=== PATIENT | male | born 1945 | race Caucasian/White ===

== ENCOUNTER 2020-05-11 01:28 | Outpatient (CLI) | payer MEDICARE, SELFPAY ==
[2020-05-11 19:05] LABS: SARS-CoV-2 RNA PCR Negative
== END 2020-05-11 01:29 | disposition home or self-care (01) ==
LOC: ANHCOVIDDT 01:28
PROVIDERS: PCP Family Medicine; Visit Provider Internal Medicine Gastroenterology
DX: Z01.812 Encounter for preprocedural laboratory examination (principal); Z20.828 Contact with and (suspected) exposure to other viral communicable diseases
CPT/HCPCS: 87635; C9803; U0003

== ENCOUNTER 2020-05-13 01:08 | Day surgery (SDC) | payer MEDICARE, SELFPAY ==
[2020-05-07 09:28] VITALS: BMI 25.9
--- NOTE | 2020-05-12 08:54 | WPDANESEPPF ---
Anes - Initial Pre Proc Eval Procedure: Operation Date: 05/13/20 09:30 Proposed Procedures p Colonoscopy - Sam Pedro MD Date/Time: 05/12/20 08:54 Surgeon: Sam Pedro MD Pre Op Diagnosis: Diverticulosis,Hx of Colon Polyps Patient Data Age: 74 Gender: M Height: 1.78 m Weight: 82 kg Allergies Allergy/AdvReac Type Severity Reaction Status Date / Time methylprednisolone Allergy Unknown nausea Verified 05/13/20 08:58 Home Medications Medication Instructions Recorded Confirmed Type aspirin 81 mg tablet,delayed 81 mg PO DAILY 05/30/19 05/13/20 History release cyanocobalamin (vitamin B-12) 2,500 mcg PO DAILY 05/30/19 05/13/20 History 2,500 mcg sublingual tablet magnesium 250 mg tablet 250 mg PO DAILY 05/30/19 05/13/20 History multivitamin 1 tablet PO DAILY 05/30/19 05/13/20 History potassium 99 mg tablet 99 mg PO DAILY tablet 05/30/19 05/13/20 History amlodipine 2.5 mg tablet 2.5 mg PO DAILY #90 tablet 09/23/19 05/13/20 Rx acetaminophen 650 mg 1,300 mg PO BID tablet 01/21/20 05/13/20 History tablet,extended release arginine (L-arginine) 1,000 mg PO DAILY 05/07/20 05/13/20 History clopidogrel 75 mg PO DAILY 05/07/20 05/13/20 History omega-3 fatty acids [[place] 3 Fish 2,000 mg PO DAILY 05/07/20 05/13/20 History Oil] Patient hx anesthesia problems: none Family hx anesthesia problems: none PMFSH Past Medical History Medical History (Updated 05/13/20 @ 09:20 by Sam Pedro MD) AAA (abdominal aortic aneurysm) BPH loc w/o ur obs/LUTS Cervical spinal stenosis Dyslipidemia Essential (primary) hypertension Fracture of left wrist 1959 Fracture of right patella 1968 History of bladder cancer History of CVA (cerebrovascular accident) History of prostate disorder Hx of heat stroke 2014 Open fracture of right lower leg 1988 Peripheral neuropathy Surgical History Surgical History History of appendectomy 195 History of back surgery 08/23/18 History of colectomy 2012 History of lumbosacral spine surgery History of partial colectomy S/P TURP Family History Family History Sibling Lung disease Father Heart disease Mother Heart disease Mother Diabetes mellitus, Onset Age: 87 Hypertension Family history of cardiovascular disease, Onset Age: 87 Family history of coronary artery disease Acute myocardial infarction, Onset Age: 87 Father Family history of cardiovascular disease Family history of coronary artery disease Acute myocardial infarction, Onset Age: 67 Sibling Diabetes mellitus, Onset Age: 63 Family history of renal failure, Onset Age: 63 Family history of elevated blood lipids Family history of cardiovascular disease Family history of coronary artery disease Father Family history of cardiovascular disease Mother Family history of cardiovascular disease Sibling Family history of lung disease Other Asthma Carcinoma of colon Cerebrovascular accident Social History Social History Smoking packs per day: 1.5 Smoking cigarettes per day: 30.0 Years smoked: 60 Smoking pack-years: 90.00 Smoking status: Current every day smoker Tobacco type: cigarettes Second hand tobacco smoke exposure: Yes Alcohol intake: current Substance use: never Substance use type: does not use Living arrangements: with family Spiritual care concerns: No Anes - Eval Final PreProcedure Day of Procedure 05/12/20 08:54 Patient weight: overweight Heart: regular rate and rhythm Lungs: clear to auscultation and normal air movement Airway: Mallampati scale class II Neurological: alert and oriented Last oral intake: >/= 8 hours ASA classification: IV Emergent: no Anesthetic plan: proceed Anesthesia type and monitoring: general GIVS and standard monitoring
[2020-05-13 08:59] VITALS: BP 140/80; PULSE 70; RESP 16; TEMP 36.3; O2SAT 98
[2020-05-13] MEDS: LACTATED RINGERS 1,000 ML 150 ML IV CONT (09:15)
--- NOTE | 2020-05-13 09:16 | WPDGICN ---
Assessment and Plan Assessment and plan (1) LLQ abdominal pain: Code(s): R10.32 - Left lower quadrant pain Status: Acute (2) History of partial colectomy: Code(s): Z90.49 - Acquired absence of other specified parts of digestive tract Status: Acute (3) History of colon polyps: Code(s): Z86.010 - Personal history of colonic polyps Status: Acute Assessment and Plan: Patient has a history of colon polyp in 2019. Underwent resection for a large colon polyp in 2010. Because of ongoing left lower quadrant pain left-sided pain in flank pain a colonoscopy will be performed. It is uncertain if this pain is related to the GI tract however. (4) History of CVA (cerebrovascular accident): Code(s): Z86.73 - Personal history of transient ischemic attack (TIA), and cerebral infarction without residual deficits Status: Acute GI Consult Note Consult date/time: 05/13/20 09:16 HPI: Jamie Argueta is a 74 year old male seen in evaluation at the request of Dr Burr. Patient complains of right abdominal pain. For this reason colonoscopy will be performed. Patient recently had diagnosis of BPH. He is status post TURP. Bladder cancer was diagnosed in May 2019. He did have some postprocedure bleeding. He now complains of left-sided abdominal pain. Patient describes pain in the left side it is sharp occurs briefly. Not related to diet or bowel movements. Past medical history is significant for TIA x5. He has a history of a pinched nerve. He has a colon polyp in February of 2019 by previous colonoscopy. In 2010 had a colon resection for very large colon polyp. Review of Systems Review of Systems: All systems reviewed & are unremarkable except as noted in HPI and below [facility] Past Medical History Medical History (Updated 05/13/20 @ 09:20 by Sam Pedro MD) AAA (abdominal aortic aneurysm) BPH loc w/o ur obs/LUTS Cervical spinal stenosis Dyslipidemia Essential (primary) hypertension Fracture of left wrist 1959 Fracture of right patella 1968 History of bladder cancer History of CVA (cerebrovascular accident) History of prostate disorder Hx of heat stroke 2014 Open fracture of right lower leg 1988 Peripheral neuropathy Surgical History Surgical History History of appendectomy 195 History of back surgery 08/23/18 History of colectomy 2012 History of lumbosacral spine surgery History of partial colectomy S/P TURP Family History Family History Sibling Lung disease Father Heart disease Mother Heart disease Mother Diabetes mellitus, Onset Age: 87 Hypertension Family history of cardiovascular disease, Onset Age: 87 Family history of coronary artery disease Acute myocardial infarction, Onset Age: 87 Father Family history of cardiovascular disease Family history of coronary artery disease Acute myocardial infarction, Onset Age: 67 Sibling Diabetes mellitus, Onset Age: 63 Family history of renal failure, Onset Age: 63 Family history of elevated blood lipids Family history of cardiovascular disease Family history of coronary artery disease Father Family history of cardiovascular disease Mother Family history of cardiovascular disease Sibling Family history of lung disease Other Asthma Carcinoma of colon Cerebrovascular accident Social History Social History Smoking packs per day: 1.5 Smoking cigarettes per day: 30.0 Years smoked: 60 Smoking pack-years: 90.00 Smoking status: Current every day smoker Tobacco type: cigarettes Second hand tobacco smoke exposure: Yes Alcohol intake: current Substance use: never Substance use type: does not use Living arrangements: with family Spiritual care concerns: No Meds Home
[2020-05-13 10:20] VITALS: BP 135/74; PULSE 64; RESP 18; O2SAT 100
[2020-05-13 10:30] VITALS: BP 139/76; PULSE 62; RESP 14; O2SAT 99
[2020-05-13 10:40] VITALS: BP 142/82; PULSE 73; RESP 25; O2SAT 100
== END 2020-05-13 10:55 | disposition home or self-care (01) ==
PROVIDERS: PCP Family Medicine; Visit Provider Internal Medicine Gastroenterology
PROC: 0DJD8ZZ Inspection of Lower Intestinal Tract, Via Natural or Artificial Opening Endoscopic (ICD-10-PCS; CPT 45378; principal; 2020-05-13 09:30)
DX: R10.32 Left lower quadrant pain (principal); D12.3 Benign neoplasm of transverse colon; K64.8 Other hemorrhoids; Z90.49 Acquired absence of other specified parts of digestive tract; I10 Essential (primary) hypertension; E78.5 Hyperlipidemia, unspecified; I71.4 Abdominal aortic aneurysm, without rupture; G62.9 Polyneuropathy, unspecified; N40.0 Benign prostatic hyperplasia without lower urinary tract symptoms; Z86.73 Personal history of transient ischemic attack (TIA), and cerebral infarction without residual deficits; F17.210 Nicotine dependence, cigarettes, uncomplicated; Z79.82 Long term (current) use of aspirin; Z79.02 Long term (current) use of antithrombotics/antiplatelets
CPT/HCPCS: 45385; 88305; J7120

== ENCOUNTER 2020-12-31 09:22 | Outpatient (CLI) | payer MEDICARE, SELFPAY ==
--- NOTE | ~2020-12-31 | MR_ITS ---
EXAMINATION: MR lumbar spine wo [facility] EXAM DATE: 12/31/2020 10:43 INDICATION: M54.5 - Low back pain. TECHNIQUE: Multi-sequential, multiplanar MR images of the lumbar spine were obtained without contrast . Sagittal T1, T2, T2 fat saturation images. Axial T2 weighted images. Comparison is made to prior examination from 07/10/2019. FINDINGS: There is edema at the left side of the L5-S1 endplates, could be minimal acute or subacute compression fractures. There is mild loss of all thoracolumbar vertebral body heights. Moderate to se angie disc disease L4-5 and L5-S1. The conus medullaris terminates at the T12-L1 level and has normal signal intensity and morphology. There is 2 mm retrolisthesis L4 on L5. Mildly dilated lower abdomina l aorta to 3 cm. Several sizable hemangiomas. Level by level evaluation: T12-L1: Disc does not extend beyond the endplate margin. Facet arthropathy: Mild. Neural foraminal stenosis: No stenosis. Central canal stenosis: No stenosis. L1-L2: Disc does not extend beyond the endplate margin. Facet arthropathy: Mild. Neural foraminal stenosis: No stenosis. Central canal stenosis: No stenosis. L2-L3: There is a mild diffuse disc bulge. Facet arthropathy: Mild to moderate. Neural foraminal stenosis: No stenosis. Central canal stenosis: No stenosis. L3-L4: There is a mild to moderate diffuse disc bulge. Facet arthropathy: Moderate to severe. Neural foraminal stenosis: Mild to moderate bilateral, right greater than left. Central canal stenosis: Mild to moderate. Evidence of prior left hemilaminotomy.. L4-L5: There is a moderate to large diffuse disc bulge. Facet arthropathy: Moderate. Neural foraminal stenosis: Moderate to severe left, moderate right. Central canal stenosis: Moderate to severe, prior left hemilaminotomy. L5-S1: There is a mild to moderate diffuse disc bulge. Facet arthropathy: Mild to moderate. Neural foraminal stenosis: Moderate left, mild to moderate right. Central canal stenosis: Mild, possible left hemilaminotomy. Edema within the L4 and L5 vertebral bodies has increased compared to prior study, as well as the lef t neural foraminal and central canal stenosis. IMPRESSION: 1. Mild diffuse loss lumbar vertebral body height with edema and L4 and L5 probably acute or subacut e on chronic minimal compressions. 2. L4-5 grade 1 retrolisthesis, moderate to severe disc disease, central canal and left neural bradley inal stenosis. Reviewed, dictated and finalized at location B. IMPRESSION: 1. Mild diffuse loss lumbar vertebral body height with edema and L4 and L5 pro bably acute or subacute on chronic minimal compressions. 2. L4-5 grade 1 retrolisthesis, moderate to severe disc disease, central canal and left neural foraminal stenosis.
== END 2020-12-31 09:23 | disposition home or self-care (01) ==
LOC: ANHIMG 09:37
PROVIDERS: PCP Family Medicine; Visit Provider Nurse Practitioner Family
DX: M54.5 Low back pain (principal); Z98.890 Other specified postprocedural states; R29.890 Loss of height; M79.89 Other specified soft tissue disorders; M43.16 Spondylolisthesis, lumbar region; M51.86 Other intervertebral disc disorders, lumbar region; M48.061 Spinal stenosis, lumbar region without neurogenic claudication
CPT/HCPCS: 72148

== ENCOUNTER 2021-02-12 14:59 | Emergency (ER) | payer MEDICARE, SELFPAY ==
[2021-02-12] VITALS (28 sets, daily range): BP systolic 104–179; BP diastolic 50–91; PULSE 63–97; RESP 15–28; TEMP 36.2; O2SAT 96–100
--- NOTE | ~2021-02-12 | XR_ITS ---
EXAMINATION: XR chest 1V INDICATION: History of COPD and bladder cancer TECHNIQUE: AP view of the chest is obtained. COMPARISON: 06/02/2011 FINDINGS: The lungs are free of acute opacities. There is no pleural effusion or pneumothorax. A calc ified nodule of the left midlung zone is consistent with old granulomatous disease. The cardiomediast inal silhouette is normal. IMPRESSION: 1. No acute cardiopulmonary abnormality. Reviewed, dictated and finalized at location A.
--- NOTE | ~2021-02-12 | CT_ITS ---
EXAMINATION: CT brain wo con INDICATION: Right-sided headache COMPARISON: 08/25/2014 TECHNIQUE: Standard unenhanced head CT. The dose-length product (DLP) was 605.33 mGy-cm. The mA was a djusted according to patient size. Iterative reconstruction technique was employed. FINDINGS: There is no acute intraparenchymal hemorrhage. No evidence of mass lesion. No evidence of a cute infarction. There is mild periventricular and subcortical hypodensity probably related to small vessel ischemic disease. There is mild prominence of the sulci and ventricles related to cerebral atr ophy. Intracranial calcified cerebral atherosclerosis is noted. There are no extra-axial collections. There is no mass effect or midline shift. Changes in the globes are likely from ocular lens surgery. The visualized sinuses and mastoid air cells are well aerated. IMPRESSION: 1. No acute intracranial abnormality. 2. Age related findings. Reviewed, dictated and finalized at location A.
--- NOTE | ~2021-02-12 | CT_ITS ---
EXAMINATION: CTA brain carotid DATE: 02/12/2021 17:02 INDICATION: Neck pain and transient ischemic attack TECHNIQUE: Computed tomographic angiography (CTA) of the head was performed with 100 mL Omnipaque-350 intravenous contrast. CTA of the neck was performed with intravenous contrast. The dose-length produ ct was 1181.82 mGy-cm. Maximum intensity projection and volume rendered 3D-reconstructions were creat ed by the technologist on a separate workstation. Automated exposure control and iterative reconstruc tion technique were employed. COMPARISON: None. FINDINGS: HEAD CTA: There is no acute intraparenchymal hemorrhage. No evidence of mass lesion. No evidence of a cute infarction. There is mild periventricular and subcortical hypodensity probably related to small vessel ischemic disease. There is mild prominence of the sulci and ventricles related to cerebral atr ophy. Intracranial calcified cerebral atherosclerosis is noted. There are no extra-axial collections. There is no mass effect or midline shift. The orbits and soft tissues are unremarkable. The visualiz ed sinuses and mastoid air cells are well aerated. There is no significant stenosis of the basilar artery or posterior cerebral arteries. There is no si gnificant stenosis of the intracranial internal carotid arteries or the anterior or middle cerebral a rteries. The anterior communicating artery and posterior communicating arteries are normal. There is no aneurysm. NECK CTA: The thyroid gland is unremarkable. The submandibular and parotid glands are symmetric. Ther e is no lymphadenopathy. There are no masses identified. There is mild to moderate thoracic spondylos is. Severe emphysema is noted in the lung apices. The superior mediastinum is unremarkable. There is 0% stenosis of the proximal right internal carotid artery relative to normal distal artery l umen diameter (NASCET criteria). There is 36% stenosis of the proximal left internal carotid artery r elative to normal distal artery lumen diameter. IMPRESSION: 1. No acute intracranial abnormality. Normal head CTA. 2. 0% stenosis of the proximal right internal carotid artery relative to normal distal artery lumen d iameter (NASCET criteria). 3. 36% stenosis of the proximal left internal carotid artery relative to normal distal artery lumen d iameter. Reviewed, dictated and finalized at location A. IMPRESSION: 1. No acute intracranial abnormality. Normal head CTA. 2. 0% stenosis of the proximal right internal carotid artery relative to normal distal artery lumen diameter (NASCET criteria). 3. 36% stenosis of the proximal left internal carotid artery relative to normal distal artery lumen diameter.
--- NOTE | 2021-02-12 15:03 | ECG_ITS ---
Measurements Intervals [place] Rate: 68 P: 60 GA: 175 QRS: -24 QRSD: 97 T: 55 QT: 380 QTc: 405 Interpretive Statements SINUS RHYTHM BORDERLINE R WAVE PROGRESSION, ANTERIOR LEADS BASELINE WANDER- II, III, AVF, V2-V3 BORDERLINE ECG Electronically Signed On 02-12-2021 15:35:00 CDT by Gerber Graham D.O.
[2021-02-12 15:18] LABS: Basophils Absolute Auto 0.1 K/mm3 (0.0-0.1); Basophils Percent Auto 0.5 % (0.2-1.2); Eosinophils Absolute Auto 0.1 K/mm3 (0-0.3); Eosinophils Percent Auto 0.9 % (0-4.4); Hemoglobin 15.5 g/dL (14.0-18.0); Immature Granulocyte Absolute 0.03 K/mm3 (0.00-0.031); Immature Granulocyte Percent A 0.3 % (0-0.5); Lymphocytes Absolute Auto 1.07 K/mm3 (0.9-3.2); Lymphocytes Percent Auto 10.8 % (18.3-44.2); Mean Corpuscular Hemoglobin 32.2 pg (26-34); Mean Corpuscular Volume 97.5 fl (80-100); Mean Platelet Volume 8.9 fl (7.4-10.4); Monocytes Absolute Auto 0.7 K/mm3 (0.1-0.6); Monocytes Percent Auto 6.7 % (2.6-8.5); Neutrophils Percent Auto 80.8 % (45.5-73.1); Platelet Count Result 221 k/mm3 (150-375); Red Blood Count 4.82 M/mm3 (4.6-6.20); Red Cell Distribution Width 13.1 % (11.5-14.5); White Blood Count 9.9 K/mm3 (4.5-10.0)
[2021-02-12 15:45] LABS: INR 0.9; Partial Thromboplastin Time 27.9 SECONDS (22.3-36.8); Prothrombin Time 12.2 Seconds (11.1-14.7)
[2021-02-12 15:55] LABS: Anion Gap 9 mmol/L (8-16); Blood Urea Nitrogen 23 mg/dL (9-20); Calcium 9.4 mg/dL (8.4-10.2); Carbon Dioxide 28 mmol/L (22-30); Chloride 104 mmol/L (98-107); Estimated CRCL calculation 38 ml/min; Estimated Glomerular Filt Rate 46; Glucose 90 mg/dL (65-110); Potassium 4.3 mmol/L (3.4-5.0); Sodium 141 mmol/L (137-145)
[2021-02-12 16:06] LABS: Troponin I < 0.012 ng/mL (0.000-0.034)
[2021-02-12] MEDS: SODIUM CHLORIDE 0.9% IV 500 ML 999 ML IV CONT (18:36)
[2021-02-12 18:53] LABS: Troponin I < 0.012 ng/mL (0.000-0.034)
[2021-02-12] MEDS: HYDROcodone/acetaminophen (*CRX) 7.5-325 MG TABLET 1 TAB PO (19:27)
--- NOTE | 2021-02-12 19:27 | ED.NEUROSD ---
HPI - Neuro Symptoms/Deficit General Chief Complaint: Suspected CVA Stated Complaint: r/o TIA Time Seen by Provider: 02/12/21 16:20 Source: patient and RN notes reviewed Mode of arrival: ambulatory Limitations: no limitations History of Present Illness HPI Narrative: Patient is a 75-year-old male who presents to emergency department for evaluation of posterior neck pain on the right side that radiates 7 to the had woke with this pain. Patient notes history of TIAs and chronic neck pain. Patient notes he felt fine yesterday. Patient is followed by neurology at [facility] who he saw in the last week. Patient is currently on Plavix and aspirin. Patient denies any other focal neurologic deficits or complaints and presents with son in no distress Related Data Home Medications Medication Instructions Recorded Confirmed aspirin 81 mg tablet,delayed 81 mg PO DAILY 05/30/19 12/02/20 release cyanocobalamin (vitamin B-12) 2,500 mcg PO DAILY 05/30/19 12/02/20 2,500 mcg sublingual tablet magnesium 250 mg tablet 250 mg PO DAILY 05/30/19 12/02/20 multivitamin 1 tablet PO DAILY 05/30/19 12/02/20 potassium 99 mg tablet 99 mg PO DAILY tablet 05/30/19 12/02/20 acetaminophen 650 mg 1,300 mg PO BID tablet 01/21/20 12/02/20 tablet,extended release arginine (L-arginine) 1,000 mg PO DAILY 05/07/20 12/02/20 omega-3 fatty acids [[place] 3 Fish 2,000 mg PO DAILY 05/07/20 12/02/20 Oil] amlodipine 2.5 mg tablet 2.5 mg PO DAILY tablet 12/02/20 12/02/20 Allergies Allergy/AdvReac Type Severity Reaction Status Date / Time No Known Allergies Allergy Verified 12/02/20 09:17 Review of Systems Review of Systems: All systems reviewed & are unremarkable except as noted in HPI and below PMFSH Past Medical History Medical History AAA (abdominal aortic aneurysm) BPH loc w/o ur obs/LUTS Cervical spinal stenosis COPD (chronic obstructive pulmonary disease) Dyslipidemia Essential (primary) hypertension Fracture of left wrist 1959 Fracture of right patella 1968 History of bladder cancer History of CVA (cerebrovascular accident) History of prostate disorder Hx of heat stroke 2014 Low back pain Open fracture of right lower leg 1988 Peripheral neuropathy Pulmonary nodules Surgical History Surgical History History of appendectomy 195 History of back surgery 08/23/18 History of colectomy 2012 History of lumbosacral spine surgery History of partial colectomy S/P TURP Family History Family History Sibling Lung disease Father Heart disease Mother Heart disease Mother Diabetes mellitus, Onset Age: 87 Hypertension Family history of cardiovascular disease, Onset Age: 87 Family history of coronary artery disease Acute myocardial infarction, Onset Age: 87 Father Family history of cardiovascular disease Family history of coronary artery disease Acute myocardial infarction, Onset Age: 67 Sibling Diabetes mellitus, Onset Age: 63 Family history of renal failure, Onset Age: 63 Family history of elevated blood lipids Family history of cardiovascular disease Family history of coronary artery disease Father Family history of cardiovascular disease Mother Family history of cardiovascular disease Sibling Family history of lung disease Other Asthma Carcinoma of colon Cerebrovascular accident Social History Social History Smoking packs per day: 1.5 Smoking cigarettes per day: 30.0 Years smoked: 60 Smoking pack-years: 90.00 Smoking status: Current every day smoker Tobacco type: cigarettes Second hand tobacco smoke exposure: Yes Alcohol intake: current Alcohol use details: drinks 1 beer a week Substance use: never Substance use
--- NOTE | 2021-02-12 19:59 | PC.NURSE ---
On the RN's arrival, pt c/o pain in neck that is constant. reported he has requested pain meds multiple times since arrival. JOE Argueta in room with pt. NETTIE Field ordered and given. pt d/c with all questions answered. a/o x 4. speech clear. ambulatory c steady, even, unassisted gait. no neuro abnormalities on d/c.
== END 2021-02-12 20:02 | disposition home or self-care (01) ==
PROVIDERS: Emergency Medicine; Emergency Medicine Emergency Medical Services; Emergency Provider Emergency Medicine; PCP Family Medicine
DX: M54.2 Cervicalgia (principal); N40.0 Benign prostatic hyperplasia without lower urinary tract symptoms; J44.9 Chronic obstructive pulmonary disease, unspecified; E78.5 Hyperlipidemia, unspecified; I10 Essential (primary) hypertension; Z85.51 Personal history of malignant neoplasm of bladder; Z86.73 Personal history of transient ischemic attack (TIA), and cerebral infarction without residual deficits; G62.9 Polyneuropathy, unspecified; Z79.02 Long term (current) use of antithrombotics/antiplatelets; Z79.82 Long term (current) use of aspirin; N42.9 Disorder of prostate, unspecified; Z90.49 Acquired absence of other specified parts of digestive tract; Z90.79 Acquired absence of other genital organ(s); F17.210 Nicotine dependence, cigarettes, uncomplicated; R94.31 Abnormal electrocardiogram [ECG] [EKG]; I65.22 Occlusion and stenosis of left carotid artery
CPT/HCPCS: 36415; 70450; 70496; 70498; 71045; 80048; 84484; 85025; 85610; 85730; 93005; 96360; 99284; A9270; J7040; Q9967

== ENCOUNTER 2021-09-14 12:20 | Observation (INO) | payer MEDICARE, SELFPAY ==
--- NOTE | ~2021-09-14 | XR_ITS ---
EXAMINATION: XR chest 2V DATE: 09/14/2021 14:26 INDICATION: Weakness. Dizziness. TECHNIQUE: Frontal and lateral views of the chest were obtained. COMPARISON: Chest single view 02/12/2021 FINDINGS: There are lucencies in the upper lungs, consistent with emphysema. Bilateral calcified pulm onary nodules are consistent with old granulomatous disease. There is mild atelectasis versus scarrin g at the lung bases. No pleural effusion or pneumothorax. The heart size is normal. IMPRESSION: 1. Emphysema. 2. Mild atelectasis versus scarring at the lung bases. Reviewed, dictated and finalized at location A. TENDER
--- NOTE | ~2021-09-14 | CT_ITS ---
EXAMINATION: CTA brain carotid DATE: 09/14/2021 14:24 INDICATION: Dizziness. TECHNIQUE: Computed tomographic angiography (CTA) of the head was performed with 100 mL Omnipaque-350 intravenous contrast. CTA of the neck was performed with intravenous contrast. Automated exposure co ntrol and iterative reconstruction technique were employed. The dose-length product was 1210.14 mGy-c m. Maximum intensity projection and volume rendered 3D-reconstructions were created by the [employer]i st on a separate workstation. COMPARISON: Head CT 09/14/2021 FINDINGS: HEAD CTA: There is no intracranial hemorrhage, acute infarction, or abnormal intracranial mass lesion . The ventricles are normal in size. There are likely changes of ocular lens replacement surgeries. T here is mild mucosal thickening in the paranasal sinuses. The mastoid air cells are normal. Left vert ebral artery is dominant. There is no significant stenosis of basilar artery or the posterior cerebra l arteries. There is no significant stenosis of the intracranial internal carotid arteries or anterio r or middle cerebral arteries. Anterior communicating artery is normal. Posterior communicating arter ies are not identified. There is no aneurysm. NECK CTA: There is mild emphysema. There is mild scarring at the lung apices. There are no pathologic ally enlarged lymph nodes. There is no significant stenosis of the vertebral arteries. There is plaqu e in the proximal internal carotid arteries. There is 18% stenosis of the proximal right internal car otid artery relative to normal distal artery lumen diameter (NASCET criteria). There is 22% stenosis of the proximal left internal carotid artery relative to normal distal artery lumen diameter. There i s moderate cervical spondylosis. IMPRESSION: 1. Normal brain. No aneurysm or significant intracranial internal stenosis. 2. 18% stenosis of the proximal right internal carotid artery relative to normal distal artery lumen diameter (NASCET criteria). 3. 22% stenosis of the proximal left internal carotid artery relative to normal distal artery lumen d iameter. Reviewed, dictated and finalized at location A. ISTICAL MACHINE SERVICER IMPRESSION: 1. Normal brain. No aneurysm or significant intracranial internal stenosis. 2. 18% stenosis of the proximal right internal carotid artery relative to jo l distal artery lumen diameter (NASCET criteria). 3. 22% stenosis of the proximal left internal carotid artery relative to normal distal artery lumen diameter.
--- NOTE | ~2021-09-14 | CT_ITS ---
EXAMINATION: CT brain wo con EXAM DATE: 09/14/2021 13:15 INDICATION: Weakness,dizzy. TECHNIQUE: Spiral CT of the head was performed without contrast. Axial, coronal and sagittal images were reviewed. The dose-length product (DLP) for this examination was 681.00 mGy-cm. The exposure w as tailored according to patient size, and iterative reconstruction (ASIR) was used as additional dos e reduction technique. Comparison is made to prior examination from 02/12/2021. FINDINGS: There is no acute intraparenchymal hemorrhage. No evidence of intraparenchymal brain mass lesion. No evidence of acute infarction. There is no mass effect or midline shift. The ventricles are normal in size. There are no extra-axial collections. There are no acute calvarial fractures. P danitza has had bilateral ocular lens surgery. Soft tissue is unremarkable. The visualized sinuses a nd mastoid air cells are well aerated. IMPRESSION: No acute intracranial findings. Reviewed, dictated and finalized at location B. ATION / CHEMISTRY TECHNICIAN
[2021-09-14 12:21] VITALS: BP 127/56; PULSE 54; RESP 16; TEMP 36.4; O2SAT 97
--- NOTE | 2021-09-14 12:35 | ED.DIZZY ---
HPI - Dizziness General Chief Complaint: Dizziness Stated Complaint: DIZZY/ROOM SPINNING. NAUSEA Time Seen by Provider: 09/14/21 12:35 Source: patient Mode of arrival: ambulatory Limitations: no limitations History of Present Illness HPI Narrative: Patient is a 75-year-old male with a history of hypertension, hyperlipidemia, atrial fibrillation, TIA/CVA, presenting to the emergency department from the patient's primary care physician's office for evaluation of dizziness, left lower extremity weakness. Patient reportedly started to feel unwell yesterday, reports dizziness as if the room is spinning. Patient feels a constant spinning sensation. Reports nausea, vomiting. Denies any abdominal pain. Denies fever, chills, back pain, flank pain, urinary symptoms. Presented today with difficulty with ambulation. He denies recent fall or injury. Patient states that he cannot get his equilibrium to normalize. Feels unsteady constantly. Denies facial droop, difficulty with speech. Patient states he has an extensive history of TIAs. Reports having greater than 200 TIAs in the past. Patient states due to a injury to his neck many years ago with a bone callus formation in the cervical vertebrae, patient is unable to lay flat and for CT imaging requires an upright CT scan. Patient he does lay on his side sleep at night. Patient denies any blurry vision. Denies any headache or severe neck pain. Denies upper extremity weakness or numbness. Related Data Home Medications Medication Instructions Recorded Confirmed cyanocobalamin (vitamin B-12) 2,500 mcg PO DAILY 05/30/19 09/14/21 2,500 mcg sublingual tablet magnesium 250 mg tablet 250 mg PO DAILY 05/30/19 09/14/21 multivitamin 1 tablet PO DAILY 05/30/19 09/14/21 potassium 99 mg tablet 99 mg PO DAILY tablet 05/30/19 09/14/21 acetaminophen 650 mg 1,300 mg PO BID tablet 01/21/20 08/24/21 tablet,extended release arginine (L-arginine) 1,000 mg PO DAILY 05/07/20 08/24/21 omega-3 fatty acids [[place] 3 Fish 2,000 mg PO DAILY 05/07/20 09/14/21 Oil] B-complex with vitamin C 1 tablet PO DAILY 03/16/21 09/14/21 coenzyme Q10 100 mg capsule 100 mg PO DAILY 03/16/21 09/14/21 pyridoxine (vitamin B6) 100 mg 100 mg PO DAILY 03/16/21 08/24/21 tablet vitamin E (dl, acetate) 180 mg 180 mg PO DAILY 03/16/21 08/24/21 (400 unit) capsule Allergies Allergy/AdvReac Type Severity Reaction Status Date / Time No Known Allergies Allergy Verified 09/14/21 11:35 Review of Systems Review of Systems: CONSTITUTIONAL: Denies fever, chills, or sweats. EYES: Denies visual changes, redness, or discharge. ENT: Denies rhinorrhea, congestion, sore throat, or otalgia. CARDIOVASCULAR: Denies chest pain, palpitations, or edema. RESPIRATORY: Denies cough or dyspnea. GASTROINTESTINAL: Denies abdominal pain, reports nausea, vomiting, denies diarrhea GENITOURINARY: Denies dysuria or hematuria. SKIN: Denies rash or itching. MUSCULOSKELETAL: Denies back pain, joint pain, or myalgia. NEUROLOGIC: Denies headache, numbness, reports left lower extremity weakness, reports dizziness PMFSH Past Medical History Medical History AAA (abdominal aortic aneurysm) BPH loc w/o ur obs/LUTS Cervical spinal stenosis COPD (chronic obstructive pulmonary disease) Dyslipidemia Essential (primary) hypertension Fracture of left wrist 1959 Fracture of right patella 1968 History of bladder cancer History of CVA (cerebrovascular accident) History of prostate disorder Hx of heat stroke 2014 Low back pain Open fracture of right lower leg 1988 Paroxysmal atrial fibrillation Peripheral neuropathy Pulmonary nodules Surgical History Surgical History History of appendectomy 195 History of back surgery 08/23/18 History of colectomy 2012 History of lumbosacral spine surgery History of partial colectomy S/P TURP Family History
--- NOTE | 2021-09-14 12:39 | ECG_ITS ---
Measurements Intervals [place] Rate: 50 P: -17 MO: 201 QRS: -26 QRSD: 93 T: 47 QT: 424 QTc: 387 Interpretive Statements SINUS BRADYCARDIA LOW QRS VOLTAGE IN PRECORDIAL LEADS [QRS DEFLECTION < 1.0 mV IN CHEST LEADS] LEFTWARD AXIS ABNORMAL ECG COMPARED TO ECG 02/12/2021 15:07:07 SINUS BRADYCARDIA NOW PRESENT Electronically Signed On 09-14-2021 14:12:07 [employer] by Nicolas Alvarado M.D.
[2021-09-14] MEDS: SODIUM CHLORIDE 0.9% IV 1,000 ML 999 ML IV CONT ×2 (13:27→15:51)
[2021-09-14 13:32] LABS: Basophils Percent Auto 0.5 % (0.2-1.2); Eosinophils Absolute Auto 0.1 K/mm3 (0-0.3); Eosinophils Percent Auto 1.2 % (0-4.4); Hematocrit 44.5 % (42.0-52.0); Hemoglobin 14.9 g/dL (14.0-18.0); Immature Granulocyte Absolute 0.01 K/mm3 (0.00-0.031); Immature Granulocyte Percent A 0.1 % (0-0.5); Lymphocytes Absolute Auto 1.57 K/mm3 (0.9-3.2); Lymphocytes Percent Auto 21.1 % (18.3-44.2); Mean Corpuscular HGB Conc 33.5 g/dl (32-36); Mean Corpuscular Hemoglobin 33.3 pg (26-34); Mean Corpuscular Volume 99.6 fl (80-100); Mean Platelet Volume 9.1 fl (7.4-10.4); Monocytes Absolute Auto 0.5 K/mm3 (0.1-0.6); Monocytes Percent Auto 6.3 % (2.6-8.5); Neutrophils Absolute Auto 5.3 K/mm3 (1.3-6.7); Neutrophils Percent Auto 70.8 % (45.5-73.1); Platelet Count Result 207 k/mm3 (150-375); Red Blood Count 4.47 M/mm3 (4.6-6.20); Red Cell Distribution Width 13.4 % (11.5-14.5); White Blood Count 7.5 K/mm3 (4.5-10.0)
[2021-09-14 13:44] LABS: Alanine Aminotransferase 16 U/L (4-50); Albumin Level 4.4 g/dL (3.5-5.1); Alkaline Phosphatase 48 U/L (38-126); Anion Gap 5 mmol/L (8-16); Aspartate Amino Transferase 36 U/L (17-59); Bilirubin,Total 0.9 mg/dL (0.2-1.3); Blood Urea Nitrogen 21 mg/dL (9-20); Calcium 9.5 mg/dL (8.4-10.2); Carbon Dioxide 33 mmol/L (22-30); Chloride 101 mmol/L (98-107); Estimated CRCL calculation 52 ml/min; Estimated Glomerular Filt Rate > 60; Glucose 121 mg/dL (65-110); Potassium 4.6 mmol/L (3.4-5.0); Sodium 139 mmol/L (137-145)
[2021-09-14 13:55] LABS: Troponin I < 0.012 ng/mL (0.000-0.034)
[2021-09-14 14:36] VITALS: BP 132/55; PULSE 48; RESP 16; O2SAT 100
[2021-09-14] MEDS: MECLIZINE HCL 25 MG TABLET PO (15:00)
--- NOTE | 2021-09-14 16:46 | WPDNEURCNPN ---
Consult date: 09/14/21 HPI: Jamie Argueta is a 75 year old male admitted to the hospital for the complaints of dizziness for which he was initially seen in the physician's office and sent to the ER reportedly he felt unwell day before developed dizziness with the spinning sensation of the room rather constantly with nausea and vomiting but no abdominal pain or fever and the day of admission to the ER he had difficulties in ambulation he gave no real history of recent fall or injury. Patient does have an extensive history of TIA and with the description a bone callus the cervical vertebra he is unable to lay flat [place] requires an upright CT scan. He has been taking multiple supplements and is not allergic to anything and his past history consistent with the history of abdominal aortic aneurysm, cervical spinal stenosis, history of cerebrovascular accident in the past, paroxysmal atrial fibrillation, and peripheral neuropathy he has undergone lumbosacral spine surgery and EKG in the ER revealed only bradycardia Review of Systems Review of Systems: All systems reviewed & are unremarkable except as noted in HPI and below PMFSH Past Medical History Medical History AAA (abdominal aortic aneurysm) BPH loc w/o ur obs/LUTS Cervical spinal stenosis COPD (chronic obstructive pulmonary disease) Dyslipidemia Essential (primary) hypertension Fracture of left wrist 1959 Fracture of right patella 1968 History of bladder cancer History of CVA (cerebrovascular accident) History of prostate disorder Hx of heat stroke 2014 Low back pain Open fracture of right lower leg 1988 Paroxysmal atrial fibrillation Peripheral neuropathy Pulmonary nodules Surgical History Surgical History History of appendectomy 1958 History of back surgery 08/23/18 History of colectomy 2012 History of lumbosacral spine surgery History of partial colectomy S/P TURP Family History Family History Sibling Lung disease Father Heart disease Mother Heart disease Mother Diabetes mellitus, Onset Age: 87 Hypertension Family history of cardiovascular disease, Onset Age: 87 Family history of coronary artery disease Acute myocardial infarction, Onset Age: 87 Father Family history of cardiovascular disease Family history of coronary artery disease Acute myocardial infarction, Onset Age: 67 Sibling Diabetes mellitus, Onset Age: 63 Family history of renal failure, Onset Age: 63 Family history of elevated blood lipids Family history of cardiovascular disease Family history of coronary artery disease Father Family history of cardiovascular disease Mother Family history of cardiovascular disease Sibling Family history of lung disease Other Asthma Carcinoma of colon Cerebrovascular accident Social History Social History Smoking packs per day: 1.5 Smoking cigarettes per day: 30.0 Years smoked: 1 Smoking pack-years: 1.50 Smoking status: Current every day smoker Tobacco type: cigarettes Second hand tobacco smoke exposure: Yes Alcohol intake: current Alcohol use details: drinks 1 beer a week Substance use: never Substance use type: does not use Gender identity (if verbalized by the patient): Male Spiritual care concerns: No Meds Home Medications and Allergies Home Medications Medication Instructions Recorded Confirmed Type cyanocobalamin (vitamin B-12) 2,500 mcg PO DAILY 05/30/19 09/14/21 History 2,500 mcg sublingual tablet magnesium 250 mg tablet 250 mg PO DAILY 05/30/19 09/14/21 History multivitamin 1 tablet PO DAILY 05/30/19 09/14/21 History potassium 99 mg tablet 99 mg PO DAILY tablet 05/30/19 09/14/21 History acetaminophen 650 mg 1,300 mg PO BID tablet 01/21/20 08/24/21 H
[2021-09-14 17:02] VITALS: BP 126/58; PULSE 52; RESP 16; O2SAT 97
[2021-09-14 17:56] LABS: Add Urine Microscopic? YES; Appearance Urine Clear (Clear); Bilirubin Urine Negative (Negative); Blood Urine Negative (Negative); Color Urine Yellow (Yellow); Glucose Urine UA Negative (Negative); Ketones Urine Negative (Negative); Leukocyte Esterase Ur Negative LEU/UL (Negative); Mucus Urine Rare /lpf; Nitrate Urine Positive (Negative); Protein Urine Negative (Negative); RBC Urine 0-2 /hpf (0-2); Specific Grav Ur 1.023 (1.001-1.035); Urobilinogen Urine Negative mg/dL (<2.0); WBC Urine 0-3 /hpf
[2021-09-14] MEDS: MECLIZINE HCL 6.25 MG TABLET PO (18:01)
[2021-09-14] MEDS: SODIUM CHLORIDE 0.9% IV 1,000 ML 100 ML IV CONT (18:03)
[2021-09-14 20:00] VITALS: BP 140/66; PULSE 49; PULSE 50; RESP 18; TEMP 36.7; O2SAT 100
--- NOTE | 2021-09-14 22:48 | PM.IMHP ---
H&P: HPI History of Present Illness Date/Time: Patient was placed observation status for expected length of stay less than 23 hours for management, will plan to re-evaluate tomorrow for improvement. 09/14/21 22:48 Chief Complaint: Dizziness Narrative: Mr. Argueta is a 75-year-old gentleman who presented emergency room with complaints of increasing dizziness over the last 2 days. Patient has a known history of CVA, TIA, AAA, atrial fibrillation, hypertension, prostate cancer, and bladder cancer. Patient states the last 2 days he has had dizziness when attempting to walk and he feels like he is running into knight. Patient denies having fallen in the last 2 days. Patient states they became bad enough that he decided come to the emergency room for further evaluation. Patient states this morning he did become nauseated and felt like he had weakness to his left lower extremity and pain to his right lower extremity. Patient's spouse is at bedside and states she has not noticed a facial droop or slurring of patient's speak. Patient is also complaining of burning sensation to his left lower extremity. Patient states when he is lying down he feels no dizziness. Patient denies any chest pain, shortness a breath, syncopal episodes, near syncopal episodes, or palpitations. Review of Systems Review of Systems: A 12 point review of systems was completed patient all pertinent positive and negative per HPI the remainder are unremarkable. [facility] Past Medical History Medical History AAA (abdominal aortic aneurysm) BPH loc w/o ur obs/LUTS Cervical spinal stenosis COPD (chronic obstructive pulmonary disease) Dyslipidemia Essential (primary) hypertension Fracture of left wrist 1959 Fracture of right patella 1968 History of bladder cancer History of CVA (cerebrovascular accident) History of prostate disorder Hx of heat stroke 2014 Low back pain Open fracture of right lower leg 1988 Paroxysmal atrial fibrillation Peripheral neuropathy Pulmonary nodules Surgical History Surgical History History of appendectomy 1958 History of back surgery 08/23/18 History of colectomy 2012 History of lumbosacral spine surgery History of partial colectomy S/P TURP Family History Family History Sibling Lung disease Father Heart disease Mother Heart disease Mother Diabetes mellitus, Onset Age: 87 Hypertension Family history of cardiovascular disease, Onset Age: 87 Family history of coronary artery disease Acute myocardial infarction, Onset Age: 87 Father Family history of cardiovascular disease Family history of coronary artery disease Acute myocardial infarction, Onset Age: 67 Sibling Diabetes mellitus, Onset Age: 63 Family history of renal failure, Onset Age: 63 Family history of elevated blood lipids Family history of cardiovascular disease Family history of coronary artery disease Father Family history of cardiovascular disease Mother Family history of cardiovascular disease Sibling Family history of lung disease Other Asthma Carcinoma of colon Cerebrovascular accident Social History Social History (Updated 09/14/21 @ 22:53 by Marianela Cannon, HEALTH POLICY ANALYST) Smoking packs per day: 1.5 Smoking cigarettes per day: 30.0 Years smoked: 60 Smoking pack-years: 90.00 Smoking status: Current every day smoker Tobacco type: cigarettes Second hand tobacco smoke exposure: Yes Alcohol intake: never Alcohol use details: drinks 1 beer a week Substance use: never Substance use type: does not use Gender identity (if verbalized by the patient): Male Spiritual care concerns: No Meds Home Medications and Allergies Home Medications Medication Instructions Recorded Confirmed Type cyanocobalamin (vitamin B-12) 2,500 mcg
[2021-09-15] VITALS (8 sets, daily range): BP systolic 101–144; BP diastolic 55–91; PULSE 47–56; RESP 16–18; TEMP 36.4–36.8; O2SAT 95–99
[2021-09-15] MEDS: SODIUM CHLORIDE 0.9% IV 1,000 ML 100 ML IV CONT ×2 (00:23→14:04)
[2021-09-15] MEDS: traMADol HCL (*CRX) 50 MG TABLET PO (03:53)
[2021-09-15 05:44] LABS: Basophils Percent Auto 0.2 % (0.2-1.2); Eosinophils Absolute Auto 0.2 K/mm3 (0-0.3); Eosinophils Percent Auto 1.6 % (0-4.4); Hematocrit 44.3 % (42.0-52.0); Hemoglobin 14.8 g/dL (14.0-18.0); Immature Granulocyte Absolute 0.05 K/mm3 (0.00-0.031); Immature Granulocyte Percent A 0.5 % (0-0.5); Lymphocytes Absolute Auto 0.78 K/mm3 (0.9-3.2); Lymphocytes Percent Auto 8.5 % (18.3-44.2); Mean Corpuscular HGB Conc 33.4 g/dl (32-36); Mean Corpuscular Volume 98.9 fl (80-100); Mean Platelet Volume 9.1 fl (7.4-10.4); Monocytes Absolute Auto 0.4 K/mm3 (0.1-0.6); Monocytes Percent Auto 3.9 % (2.6-8.5); Neutrophils Absolute Auto 7.9 K/mm3 (1.3-6.7); Neutrophils Percent Auto 85.3 % (45.5-73.1); Platelet Count Result 193 k/mm3 (150-375); Red Blood Count 4.48 M/mm3 (4.6-6.20); Red Cell Distribution Width 13.5 % (11.5-14.5); White Blood Count 9.2 K/mm3 (4.5-10.0)
[2021-09-15 06:32] LABS: Anion Gap 3 mmol/L (8-16); Blood Urea Nitrogen 19 mg/dL (9-20); Calcium 8.3 mg/dL (8.4-10.2); Carbon Dioxide 29 mmol/L (22-30); Chloride 106 mmol/L (98-107); Estimated CRCL calculation 48 ml/min; Estimated Glomerular Filt Rate 59; Glucose 95 mg/dL (65-110); Potassium 4.1 mmol/L (3.4-5.0); Sodium 138 mmol/L (137-145)
--- NOTE | 2021-09-15 06:35 | PC.NURSE ---
09/15/21 0635 recieved call from amanda regarding mri screening form before pt procedure. attempted to obtain information from pt when pt became upset stating i was down there all day yesterday getting those tests done, tell those people down there they are nuts. what else do they possibly want a picture of. i'm not doing it. pt refused mri.
[2021-09-15] MEDS: OMEGA 3 POLYUNSAT FATTY ACIDS 1 GM CAP 2 GM PO (08:58)
[2021-09-15] MEDS: PYRIDOXINE HCL 50 MG TABLET 100 MG PO (08:59)
[2021-09-15] MEDS: CYANOCOBALAMIN 1,000 MCG TABLET 2000 MCG PO (08:59)
[2021-09-15] MEDS: CLOPIDOGREL BISULFATE 75 MG TABLET PO (09:00)
[2021-09-15] MEDS: MAGNESIUM OXIDE 200 MG TABLET PO (09:00)
[2021-09-15] MEDS: VITAMIN B COMPLEX/VIT C CAPSULE 1 EACH PO (09:00)
[2021-09-15] MEDS: LOSARTAN POTASSIUM 50 MG TABLET PO (09:00)
[2021-09-15] MEDS: hydrALAZINE HCL 50 MG TABLET PO (09:01)
[2021-09-15] MEDS: APIXABAN 5 MG TABLET PO (09:01)
[2021-09-15] MEDS: METOPROLOL SUCCINATE EXT REL 25 MG TABCR PO (09:01)
[2021-09-15] MEDS: CYANOCOBALAMIN 500 MCG TABLET PO (09:01)
[2021-09-15] MEDS: MULTIVITAMINS THERAPEUTIC TAB (*BKC) 1 TABLET PO (09:02)
[2021-09-15] MEDS: FUROSEMIDE 20 MG TABLET PO (09:02)
[2021-09-15] MEDS: VITAMIN E 400 UNIT CAPSULE PO (09:02)
[2021-09-15] MEDS: MECLIZINE HCL 6.25 MG TABLET PO ×2 (09:02→14:02)
--- NOTE | 2021-09-15 13:50 | PCCCNOTE ---
On 09/15/21, the student, [Pretty Romero], provided care and completed [facility] documentation on this patient. I have reviewed the student's documentation and agree with the findings.
--- NOTE | 2021-09-15 15:20 | PC.NURSE ---
Pt left hospital AMA. Form signed. Risks of leaving thoroughly explained including risk of possible injury up to and including . Pt verbalized understanding. Attempts to redirect pt unsuccessful. Pt became belligerent and aggressive at times during conversation. Orders for cardiology consult. Pt encouraged to wait until cardiology able to round on pt. Pt refuses and insists to leave AMA. Pulled IV our of arm per self stating rooms are cheaper at [facility]. Son called but no answer. Message left to return call. Spouse called, notified of pt leaving AMA. States she will be here to pick him up. Pt left floor per self. Gait steady.
--- NOTE | 2021-09-15 15:26 | PM.IMPN ---
Progress Note: A&P Additional Plan PATIENT SIGNED OUT AMA BEFORE ALL ASPECTS OF THE ASSESSMENT AND PLAN COULD BE CARRIED OUT SUCH CARDIOLOGY EVALUATION AND TREATMENT. Assessment and plan (1) Dizziness: Code(s): R42 - Dizziness and giddiness Status: Acute Assessment and Plan: - Pt states no current symptoms. - Telemetry shows bradycardia - Cardiology was consulted, has yet to be evaluated by them as the pt. has left AMA. (2) Essential (primary) hypertension: Code(s): I10 - Essential (primary) hypertension Status: Acute Assessment and Plan: - Will resume patient's home medications and adjust medications accordingly for optimal blood pressure control. - Pt. left AMA. (3) Left leg weakness: Code(s): R29.898 - Other symptoms and signs involving the musculoskeletal system Status: Acute Assessment and Plan: - Resolved Time Spent With Patient Time with patient: 25 - 35 minutes Subjective Date/time seen: 09/15/21 1300 This pt. was examined at the bedside in interval assessment with his spouse present. The pt. was admitted for evaluation and treatment of his dizziness that occurred with changing positions. He was noted to be orthostatic and on telemetry has been Bradycardic in the high 40s and the 50s. Concern was present for possible weakness in the left leg upon presentation to the ER and that has completely resolved. Pt. had CT brain, CTA Brain and CTA Neck which were all negative for any acute findings. Neurology has been consulted and we were awaiting their recommendations for continued treatment. Upon seeing the patient's Bradycardia, I suspicion that his dizziness has been related to possible Bradycardia and he may need to be evaluated for a pacemaker. I consulted Cardiology and was awaiting their consult when...... While I was in the room, pt. appears to be exaggerative and nonsensical by saying he has had 200 TIA's and he can control them. He was asked by myself if he was dizzy only with changing positions, and he instead began talking about his pain everywhere in his body, his metal in his right leg and then becomes angry with a very labile temper about being asked questions. He became irate with his and they argued in the room, and then when I tried to interject, he turned on me and accused me of saying I couldn't do anything to help him, so he was leaving and he attempted to rip out his IV. I was able to calm patient down somewhat, but he continued to yell and insist on leaving. I explained to him calmly that I believed his symptoms were all cardiac in nature, and that recent testing within the past 6 months of the brain, ruled out any acute neurological disease. The was present in the room when he agreed to stay and be evaluated by Cardiology as my concern was that his dizziness was related to Bradycardia. I explained to him that should he leave without evaluation, he would be taking his life into his own hands and could have undue pain and suffering, irreversible damage as well as possible . He then agreed to stay. I was then called by the nurse two hours later and despite he has yet to be evaluated by Cardiology, the pt. has insisted on leaving AMA at this time and his is coming to pick him up after he yelled at her and she left. The pt. could not be reasoned with and ripped his IV out and left after the nurse also told her all of the same risks vs. benefits of staying and he would not stay. Review of Systems Review of Systems: A 12 point review of systems was reviewed and is negative except for what is noted in HPI. ROS unobtainable: Yes other (Pt. was hard to redirect to get any information out of.) Exam Narrative: Constitutional: Patient is well-nourished in no acute distress. Patient is alert oriented x3 HEENT: Moist mucous membranes. No scleral icterus. No lymphadenopathy. Neck: No carotid bruits noted no JVD noted Lungs: Lung sounds are clear to aus
== END 2021-09-15 15:20 | disposition left against medical advice (07) ==
LOC: ANHED 12:42 → ANH3MEDSUR 16:32
PROVIDERS: Nurse Practitioner Adult Health; Admitting Provider Family Medicine; Emergency Provider Emergency Medicine; PCP Family Medicine; Visit Provider Nurse Practitioner Adult Health
DX: R42 Dizziness and giddiness (principal); R53.1 Weakness; I10 Essential (primary) hypertension; E78.5 Hyperlipidemia, unspecified; I48.91 Unspecified atrial fibrillation; I71.4 Abdominal aortic aneurysm, without rupture; J44.9 Chronic obstructive pulmonary disease, unspecified; I48.0 Paroxysmal atrial fibrillation; G62.9 Polyneuropathy, unspecified; M47.812 Spondylosis without myelopathy or radiculopathy, cervical region; N40.0 Benign prostatic hyperplasia without lower urinary tract symptoms; F17.210 Nicotine dependence, cigarettes, uncomplicated; Z90.49 Acquired absence of other specified parts of digestive tract; Z86.73 Personal history of transient ischemic attack (TIA), and cerebral infarction without residual deficits; Z85.51 Personal history of malignant neoplasm of bladder; Z85.46 Personal history of malignant neoplasm of prostate; Z79.01 Long term (current) use of anticoagulants
CPT/HCPCS: 36415; 70450; 70496; 70498; 71046; 80048; 80053; 81001; 84443; 84484; 85025; 93005; 96360; 96361; 99285; A9270; G0378; J7030; Q9967

== ENCOUNTER 2022-06-23 07:19 | Outpatient (CLI) | payer MEDICARE, SELFPAY ==
--- NOTE | ~2022-06-23 | CT_ITS ---
EXAMINATION: CT lung screening DATE: 06/23/2022 09:33 INDICATION: Smoking history. Personal history of tobacco dependence. TECHNIQUE: Computed tomography (CT) of the chest was performed without intravenous contrast. The dose -length product was 137.72 mGy-cm. Automated exposure control and iterative reconstruction technique were employed. COMPARISON: CT dated 06/11/2017 FINDINGS: There is a partially visualized 3.8 cm infrarenal abdominal aortic aneurysm. No significant pleural or pericardial effusion. No thoracic lymphadenopathy. There is atherosclerosis. There is a n onobstructing 4 mm right renal stone. There are calcified granulomas of the spleen. There are calcifi ed hilar lymph nodes, consistent with chronic granulomatous disease.There is calcified granuloma righ t upper lobe. There are calcified granulomas of the left lower lobe. There are 2-3 mm fissural nodule s on the right. There is emphysema. No pneumothorax. There are 3 mm right lower lobe nodules which ar e noncalcified. There is severe lumbar spondylosis. No focal lytic or blastic lesions. IMPRESSION: 1. Lung-RADS category 2: Benign appearance or behavior. Continue annual screening with noncontrast lo w-dose chest CT in 12 months. 2: Partially visualized infrarenal abdominal aortic aneurysm measuring 3.8 cm. Reviewed, dictated and finalized at location A. GE PLANT SUPERVISOR IMPRESSION: 1. Lung-RADS category 2: Benign appearance or behavior. Continue annual screeni ng with noncontrast low-dose chest CT in 12 months. 2: Partially visualized infrarenal abdominal aortic aneurysm measuring 3.8 cm.
--- NOTE | ~2022-06-23 | US_ITS ---
EXAMINATION: US aorta [facility] DATE: 06/23/2022 14:20 GENETICS NURSE INDICATION: Encounter for screening examination. Aortic aneurysm. TECHNIQUE: Grayscale, color Doppler, and pulsed Doppler images of the aorta and common iliac arteries were obtained. COMPARISON: None. FINDINGS: The proximal aorta measures 2.7 cm greatest sagittal dimension. The mid aorta measures 2.5 cm greates t sagittal dimension. The distal aorta measures 3.6 cm greatest sagittal dimension. The right common internal iliac artery measures 11 mm. The left common iliac artery measures 10 mm. IMPRESSION: 1. Infrarenal fusiform abdominal aortic aneurysm measuring 3.6 cm greatest sagittal dimension. Reviewed, dictated and finalized at location A. TICS NURSE IMPRESSION: 1. Infrarenal fusiform abdominal aortic aneurysm measuring 3.6 cm greatest sagi ttal dimension.
== END 2022-06-23 07:20 | disposition home or self-care (01) ==
PROVIDERS: PCP Family Medicine; Visit Provider Family Medicine
DX: Z12.2 Encounter for screening for malignant neoplasm of respiratory organs (principal); F17.210 Nicotine dependence, cigarettes, uncomplicated; Z13.6 Encounter for screening for cardiovascular disorders; I71.40 Abdominal aortic aneurysm, without rupture, unspecified
CPT/HCPCS: 71271; 76706

== ENCOUNTER → 2022-12-27 07:10 | Outpatient (CLI) | payer MEDICARE, MEDICAID, SELFPAY ==
--- NOTE | ~2022-12-27 | CT_ITS ---
EXAMINATION: CTA brain carotid DATE: 12/28/2022 07:46 INDICATION: Dizziness and giddiness. Left hemiparesis. TECHNIQUE: Computed tomographic angiography (CTA) of the head was performed without and with 100 mL O mnipaque-350 intravenous contrast. CTA of the neck was performed with intravenous contrast. Automated exposure control and iterative reconstruction technique were employed. The dose-length product was 1 773.53 mGy-cm. Maximum intensity projection and volume rendered 3D-reconstructions were created by branden puga technologist on a separate workstation. COMPARISON: CTA 09/14/2021 FINDINGS: HEAD CTA: There is no intracranial hemorrhage, acute infarction, or abnormal intracranial mass lesion . The ventricles are normal in size. There are likely changes of ocular lens replacement surgeries. T here is mild mucosal thickening in the paranasal sinuses. The mastoid air cells are normal. Left vert ebral artery is dominant. There is no significant stenosis of basilar artery or the posterior cerebra l arteries. There is no significant stenosis of the intracranial internal carotid arteries or anterio r or middle cerebral arteries. Anterior communicating artery is normal. The posterior communicating a rteries are normal. There is no aneurysm. NECK CTA: There is mild to moderate emphysema. There are no pathologically enlarged lymph nodes. Ther e is no significant stenosis of the vertebral arteries. There is plaque in the proximal internal [place] tid arteries. There is 26% stenosis of the proximal right internal carotid artery relative to normal distal artery lumen diameter (NASCET criteria). There is 20% stenosis of the proximal left internal c arotid artery relative to normal distal artery lumen diameter. There is moderate cervical spondylosis . IMPRESSION: 1. Normal brain. No aneurysm or significant intracranial arterial stenosis. 2. 26% stenosis of the proximal right internal carotid artery relative to normal distal artery lumen diameter (NASCET criteria). 3. 20% stenosis of the proximal left internal carotid artery relative to normal distal artery lumen d iameter. 4. Emphysema. Reviewed, dictated and finalized at location A. IMPRESSION: 1. Normal brain. No aneurysm or significant intracranial arterial stenosis. 2. 26% stenosis of the proximal right internal carotid artery relative to jo l distal artery lumen diameter (NASCET criteria). 3. 20% stenosis of the proximal left internal carotid artery relative to normal distal artery lumen diameter. 4. Emphysema.
[2022-12-28 13:52] LABS: Estimated Glomerular Filt Rate 42
== END ==
PROVIDERS: PCP Student in an Organized Health Care Education/Training Program; Visit Provider Student in an Organized Health Care Education/Training Program
DX: R42 Dizziness and giddiness (principal); R29.898 Other symptoms and signs involving the musculoskeletal system; Z86.73 Personal history of transient ischemic attack (TIA), and cerebral infarction without residual deficits; I65.23 Occlusion and stenosis of bilateral carotid arteries; J43.9 Emphysema, unspecified
CPT/HCPCS: 36415; 70496; 70498; 82565; Q9967

== ENCOUNTER 2023-05-14 12:11 | Outpatient (CLI) | payer MEDICARE, MEDICAID, SELFPAY ==
--- NOTE | 2023-05-14 12:29 | ECHO_ITS ---
Patient Info Name: Jamie Argueta Age: 77 years : 1945 Gender: Male Ht: 70 in Wt: 141 lbs BSA: 1.77 m2 HR: 65 bpm BP: 162 / 99 mmHg Heart Rhythm: Sinus Rhythm Technical Quality: Fair Exam Date: 05/14/2023 12:41 PM Exam Location: [facility] Patient Status: Outpatient Admit Date: 05/14/2023 Staff Ordering Physician: Gerber Graham DO Resistance Brazer: Brittany Weiss RDCS Attending Provider: Gerber Graham DO Referring Physician: Santos MILLER; Exam Type: CA echo doppler color flow Study Info Indications I51.89 - Other ill-defined heart diseases Complete two-dimensional, color flow and Doppler transthoracic echocardiogram is performed. Summary 1. Complete two-dimensional, color flow and Doppler transthoracic echocardiogram is performed. 2. Left ventricular chamber dimension is normal. 3. Left ventricular systolic function is normal, estimated at 65-70%. 4. The left ventricular diastolic function is grade I diastolic dysfunction. 5. E/e' 7 is not elevated. 6. Left atrial chamber dimension is moderately enlarged. 7. Right atrial chamber dimension is mildly enlarged. 8. There is mild aortic valve sclerosis. 9. There is mild aortic valve regurgitation. 10. There is trace tricuspid valve regurgitation. 11. No pulmonary hypertension, estimated pulmonary arterial systolic pressure is 23 mmHg. Left Ventricle E/e' 7 is not elevated. Left ventricular chamber dimension is normal. Left ventricular systolic function is normal, estimated at 65-70%. The left ventricular diastolic function is grade I diastolic dysfunction. Right Ventricle Right ventricular systolic function is normal and with normal TAPSE 2.2 cm. Right ventricular chamber dimension is normal. Left Atria Left atrial chamber dimension is moderately enlarged. Right Atria Right atrial chamber dimension is mildly enlarged. Aortic Valve The aortic valve is trileaflet. There is mild aortic valve sclerosis. There is no aortic valve stenosis. There is mild aortic valve regurgitation. Pulmonic Valve There is no pulmonic regurgitation. Mitral Valve There is no mitral valve stenosis. There is no mitral valve regurgitation. Tricuspid Valve There is trace tricuspid valve regurgitation. No pulmonary hypertension, estimated pulmonary arterial systolic pressure is 23 mmHg. Pericardium/Pleural There is no pericardial effusion. Inferior Vena Cava Normal inferior vena cava with >50% collapse upon inspiration consistent with normal right atrial pressure, 5 mmHg. Aorta The aortic root size at the sinus of Valsalva is normal. Left Ventricular Outflow Tract Name Value Normal LVOT 2D LVOT Diameter 2.0 cm LVOT Doppler LVOT Peak Gradient 7 mmHg LVOT Mean Gradient 3 mmHg LVOT VTI 24 cm LVOT VTI/AV VTI Ratio 0.9 LVOT Stroke Volume 78 ml LVOT CO 4.2 l/min LVOT CI 2.4 l/min/m2 Pulmonic Valve Name Value Normal
== END 2023-05-14 12:12 | disposition home or self-care (01) ==
LOC: ANHCARD 12:11
PROVIDERS: PCP Family Medicine; Visit Provider Internal Medicine Cardiovascular Disease
DX: I51.89 Other ill-defined heart diseases (principal); I35.1 Nonrheumatic aortic (valve) insufficiency
CPT/HCPCS: 93306

== ENCOUNTER → 2023-06-12 08:21 | Outpatient (CLI) | payer MEDICARE, MEDICAID, SELFPAY ==
--- NOTE | ~2023-06-12 | XR_ITS ---
EXAMINATION: XR chest 2V 06/12/2023 08:48 INDICATION: Cough PROCEDURE: 2 view chest COMPARISON: 09/14/2021 FINDINGS: The lungs are clear. The cardiomediastinal silhouette is within normal limits. There are no pleural effusions. There is no pneumothorax suspected. IMPRESSION: 1: NO ACUTE CARDIOPULMONARY DISEASE. Reviewed, dictated and finalized at location [facility]
== END ==
PROVIDERS: PCP Family Medicine; Visit Provider Family Medicine
DX: R05.9 Cough, unspecified (principal)
CPT/HCPCS: 71046

== ENCOUNTER 2023-06-13 12:21 | Outpatient (CLI) | payer MEDICARE, MEDICAID, SELFPAY ==
--- NOTE | 2023-06-13 16:17 | WPDSIXMINUTE ---
Six Minute Walk Procedure Procedure Performed Pulmonary Stress Test (6 min walk) Six Minute Walk Six Minute Walk: This is a 6 minute walk test. The test was performed and interpreted in accordance with the 2014 ERS/ATS task force guidelines. Findings: The patient's resting room air oxygen saturation measured by pulse oximetry was 98% and heart rate was 55 bpm. Patient ambulated for 305 meters and oxygen saturation remained 91 to 95%. Heart rate at the end of the study was 73 bpm. The patient did not qualify for supplemental oxygen at rest or with ambulation. There are no prior studies for comparison.
--- NOTE | 2023-06-14 13:14 | P.PCNPFT_ITS ---
PFT Procedure Performed PFT Procedure Performed Spirometry with Pre/Post Bronchodilator Plethysmography (Lung Vol) Diffusing Cap (DLCO) Flow Vol Loop PFT Interpretation This is a pulmonary function test with pre and post-bronchodilator spirometry, plethysmography and diffusing capacity. The test was performed and results interpreted in accordance with the 2019 and 2005 ATS/ERS Task Force guidelines respectively using the Global Lung Function Initiative-2012 reference equations. Patient demonstrated good effort and cooperation. Reproducibility criteria were met. The quality of the pre bronchodilator spirometry maneuver was Grade B and post bronchodilator spirometry maneuver was Grade B. Findings: Spirometry: There is decreased maximal expiratory airflow at all lung volumes with concave expiratory flow tracing. The contour the inspiratory flow tracing is normal. The pre bronchodilator FVC is 4.36 L, 110% predicted. The pre bronchodilator FEV1 is 2.38 L, 81% predicted. The pre bronchodilator FEV1: FVC ratio is 55%. The post bronchodilator FVC is 4.20 L, representing a 3% decrease. The post bronchodilator FEV1 is 2.27 L, representing a 5% decrease. The post bronchodilator FEV1: FVC ratio is 54%. Plethysmography: The total lung capacity is 7.67 L, 109% predicted. The functional residual capacity is 5.26 L, 138% predicted. The residual volume is 3.31 L, 127% predicted. Diffusion capacity: The diffusing capacity unadjusted for hemoglobin and carboxyhemoglobin is 14.1, 58% predicted. The diffusing capacity adjusted for alveolar volume is 2.13, 58% predicted. Impression: There is a mild obstructive abnormality without significant improvement after inhaling a single dose of albuterol. The lung volumes are normal. The diffusing capacity unadjusted for hemoglobin and carboxyhemoglobin is moderately decreased and remains moderately decreased when adjusted for alve olar volume. There are no prior studies for comparison
== END 2023-06-13 12:22 | disposition home or self-care (01) ==
PROVIDERS: PCP Family Medicine; Visit Provider Physician Assistant
DX: J44.9 Chronic obstructive pulmonary disease, unspecified (principal); R94.2 Abnormal results of pulmonary function studies
CPT/HCPCS: 94060; 94618; 94726; 94729

== ENCOUNTER → 2023-06-29 09:12 | Outpatient (CLI) | payer MEDICARE, MEDICAID, SELFPAY ==
--- NOTE | ~2023-06-29 | CT_ITS ---
CT Scan of the Chest without Contrast: Clinical Indication: Pulmonary nodule Technique: Contiguous sections were acquired throughout the chest without intravenous contrast. Dose reduction technique was used on this scan by utilizing automated exposure control and iterative recon struction technique. The dose-length product (DLP) was 117.39 mGy-cm. COMPARISON: 06/23/2022 Findings: There is no evidence of any significant mediastinal, hilar or axillary lymphadenopathy. There are ath erosclerotic calcifications of the aorta and coronary arteries. There is no evidence of pleural or pericardial effusion. There is moderate to advanced emphysema. Calcified granulomas are present. There is a stable subcenti meter pleural-based nodule the right lower lobe (axial image 107). There is linear scarring at the li ngula. Images through the upper abdomen reveal no abnormalities. Impression: Benign-appearing pulmonary nodules, as above. Moderate to advanced emphysema. Reviewed, dictated and finalized at [facility]. TRICAL TECHNICIAN INSTRUCTOR Impression: Benign-appearing pulmonary nodules, as above. Moderate to advanced emphysema.
== END ==
PROVIDERS: PCP Physician Assistant; Visit Provider Physician Assistant
DX: R91.1 Solitary pulmonary nodule (principal); R91.8 Other nonspecific abnormal finding of lung field; J43.9 Emphysema, unspecified
CPT/HCPCS: 71250

== ENCOUNTER 2025-03-19 01:07 | Day surgery (SDC) | payer MEDICARE, SELFPAY ==
[2025-03-11 08:57] VITALS: BMI 24.5
--- NOTE | 2025-03-11 09:13 | SUR.PREOP ---
Spoke with patient and his in regards to his Plavix. Last dose to be taken 03/11/25 for his procedure on 03/19/2025. Both verbalized understanding.
--- OUTSIDE RECORDS SUMMARY | 2025-03-19 01:10 | XMS_ITS | Encounter Summary ---
Author Organization [facility] Address [address] [address] Care Team Providers Care Product Grader Name Role Phone Jacques Qiu MD Primary Care Provider [phone] Jacques Qiu MD Primary Care Provider [phone] Miriam Burr MD Primary Care Provider Mateus Painter MD Unavailable [phone] Encounter Details Date Type Department Care Team (Late st Contact Info) Description 07/25/2016 Orders Only [facility] ProviderDavid MD [address] [place] [id number] Social History Tobacco Use Types Packs/Day Years Used Date Smoking Tobacco: Every Day Alcohol Use Standard Drinks/Week Comments Yes 0 (1 standard drink = 0.6 oz pur e alcohol) Sex and Gender Information Value Date Recorded Sex Assigned at Not on file Legal Sex Male 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 us Historical Provider [facility] Final Result documented in this encounter Visit Diagnoses Not on filedocumented in this encounter Care Teams Product Grader Relationship Specialty Start Date End Date Jacques Qiu MD [address] [place], [place] [id number] PCP - General 08/22/16 01/26/21 Jacques Qiu MD [address] [place] [address] PCP - General 07/25/16 08/21/16 Miriam Burr MD [address] [place] [address] PCP - General Family Practice 01/27/21 Mateus Painter MD [address] [address] Referring Physician Internal Medicine 02/07/21 02/07/21 documented as of this encounter
--- OUTSIDE RECORDS SUMMARY | 2025-03-19 01:10 | XMS_ITS | Encounter Summary ---
Author Organization [facility] Address [address] [facility] [address] [place] [address] Care Team Providers Care Cooler Worker Name Role Phone Jacques Qiu MD Primary Care Provider [phone] Miriam Burr MD Primary Care Provider Mateus Painter MD Unavailable [phone] Encounter Details Date Type Department Care Team (Late st Contact Info) Description 08/22/2016 Orders Only [facility] ProviderDavid MD [address] [place] [address] Social History Tobacco Use Types Packs/Day Years Used Date Smoking Tobacco: Every Day Alcohol Use Standard Drinks/Week Comments Yes 0 (1 standard drink = 0.6 oz pur e alcohol) Sex and Gender Information Value Date Recorded Sex Assigned at Not on file 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 Historical Provider [facility] PROCE DURES Final Result documented in this encounter Visit Diagnoses Not on filedocumented in this encounter Care Teams Cooler Worker Relationship Specialty Start Date End Date Jacques Qiu MD [address] [place] [address] PCP - General 08/22/16 01/26/21 Miriam Burr MD [address] [place] [address] PCP - General Family Practice 01/27/21 Mateus Painter MD [address] [address] Referring Physician Internal Medicine 02/07/21 02/07/21 documented as of this encounter
--- OUTSIDE RECORDS SUMMARY | 2025-03-19 01:10 | XMS_ITS | Clinical Summary ---
Author Organization [facility] Address [address] [place] [address] Phone Care Team Providers Care Corporate Aircraft Mechanic Name Role Phone Miriam Burr MD Primary Care Provider Allergies No known active allergies Medications acetaminophen (TYLENOL ARTHRITIS) 650 mg Extended Release tablet Take 650 mg by mouth every 6 hours as needed for Pain. Active atorvastatin (LIPITOR) 80 mg tablet Take 80 mg by mouth daily at bedtime. Active amLODIPine (NORVASC) 2.5 mg tablet Take 2.5 mg by mouth daily. Active multivitamin (DAILY-EMI) tablet Take 1 Tablet by mouth daily. Active Fish Oil-Kemp-3 Fatty Acids 360-1,200 mg Capsule Take 1 Capsule by mouth. Active folic acid-vit B6-vit B12 (FOLBEE,FOLTX) 2.5-25-1 mg Tablet Take 1 Tablet by mouth daily. Active vitamin B complex (SUPER B [id number]-P-84 ORAL) Take by mouth. Active zinc gluconate 50 mg Tablet Take by mouth. Active magnesium oxide 250 mg Tablet Take 250 mg by mouth. Active POTASSIUM-99 ORAL Take by mouth daily. Active clopidogrel (PLAVIX) 75 mg Tablet Take 75 mg by mouth. Active oxyCODONE-acetami nophen (PERCOCET) 5-325 mg tablet Take 1-2 Tablets by mouth every 6 hours as needed. Max Daily Amount: 8 Tablets 60 Tablet 9 Active BABY ASPIRIN ORAL Take 81 mg by mouth daily. Active arginine oxoglurate (L-ARGININE,ALPHA -KETOGLUTARAT, ORAL) Take 500 mg by mouth daily. Active coenzyme Q10 100 mg Capsule Take 100 mg by mouth daily. Active VITAMIN E ORAL Take by mouth. Active red yeast rice 600 mg Tablet Take 600 mg by mouth 2 times daily. Active traMADoL (ULTRAM) 50 mg tabletIndications :Lumbar stenosis without neurogenic claudication TAKE 2 TABLETS BY MOUTH EVERY 6 HOURS NEEDED FOR PAIN 40 Tablet Active Active Problems Problem Noted Date Diagnosed Date Tobacco use 06/22/2018 Lumbar radiculopathy 06/18/2018 Immunizations Immunization Administration Dates Next Due Influenza Seasonal Unspecified Formulation IM Family History Medical History Relation Name Comments Diabetes Brother High Cholesterol Brother Heart Disease Father High Cholesterol Father Hypertension Father Heart Disease Mother High Cholesterol Mother Hypertension Mother Relation Name Status Comments Brother Father Mother Social History Tobacco Use Types Packs/Day Years Used Date Smoking Tobacco: Every Day Cigarettes 1.5 50 Smokeless Tobacco: Never Alcohol Use Standard Drinks/Week Comments Not Currently 0 (1 standard drink = 0.6 oz pur e alcohol) rarely Sex and Gender Information Value Date Recorded Sex Assigned at Not on file Legal Sex Male 1:[address]ER Gender Identity Not on file Sexual Orientation Not on file Last Filed Vital Signs Vital Sign Reading Time Taken Comments Blood Pressure 146/87 01/03/2021 10:30 AM CDT Pulse 64 01/03/2021 10:30 AM CDT Temperature 36.5 C (97.7 F) 01/03/2021 10:30 AM CDT Respiratory Rate 16 06/25/2018 7:[address] Oxygen Saturation 99% 06/25/2018 9:[address] Inhaled Oxygen Concentration - - Weight 83 kg (183 lb) 01/03/2021 10:30 AM CDT Height 172.7 cm (5' 8) 01/03/2021 10:30 AM CDT Body Mass Index 27.83 01/03/2021 10:30 AM CDT Plan of Treatment Health Maintenance Due Date Last Done Comments DTAP/TDAP/TD VACCINES (1 - Tdap) 11/03/1963 PNEUMOCOCCAL VACCINE 50+ YEA RS (1 of 2 - PCV) 11/03/1963 ZOSTER VACCINE (1 of 2) 1994 RSV VACCINE (60+ or ) (1 - 1-dose 75+ series) 11/03/2019 INFLUENZA VACCINE (#1) 2025 03/04/2020, 2017 Medical Devices Implanted Type Area Microsoft Exchange Architect Device Identifier Shelf Expiration Date Model / Serial / Lot Hemostatic Surgiflo 8ml W/Thrombin 0254 - [id number] Implanted:Qty : 1 on 06/18/2018 by Evaristo Valencia MD at [facility] Hemostatic N/A: Spine Lumbar [employer] [id number] 12/14/2019 2994 / / [id number] Hemostatic Surgiflo 8ml W/Thrombin 2994 - [id number] Implanted:Qty : 1 on 06/23/2018 by Lorenzo Forte MD at [facility] Hemostatic Left: Back [employer] 12/14/2019 2994 / / [id number] Hardware Leg Insurance RX AET Medicare Part D [facility] [place] [address] Advance Directives For more information, please contact: [phone] * Full Code (Latest Code Status on File) Date Activated Date Inactivated Comments 06/23/2018 3:37 PM 06/25/2018 3:27 PM * Full Code Date Activated Date Inactivated Comments 06/23/2018 12:33 PM 06/23/2018 3:37 PM * Full Code Date Activated Date Inactivated Comments 06/18/2018 6:49 AM 06/18/2018 6:56 PM Care Teams Corporate Aircraft Mechanic Relationship Specialty Start Date End Date Miriam Burr MD [address] [place] [id number] PCP - General Family Practice 12/28/20
--- OUTSIDE RECORDS SUMMARY | 2025-03-19 01:10 | XMS_ITS | Clinical Summary ---
Author Organization [facility] [address] Address [address] [place] [address] Care Team Providers Care Oyster Shipper Name Role Phone Miriam Burr MD Primary Care Provider Allergies No known active allergies Medications atorvastatin (LIPITOR) 80 mg tablet Take 80 mg by mouth nightly. Active clopidogrel (PLAVIX) 75 mg tablet Take 75 mg by mouth daily. Active acetaminophen (TYLENOL) 325 mg tablet Take 650 mg by mouth every 6 (six) hours as needed for pain Active magnesium oxide (MAG-OX) 250 mg (150.8 mg elemental) tablet Take 250 mg by mouth Active multivitamin tablet Take 1 tablet by mouth daily Active omega-3 fatty acids-fish oil 360-1,200 mg capsule Take 1 capsule by mouth Active red yeast rice 600 mg tablet Take 600 mg by mouth 2 (two) times a day Active traMADoL (ULTRAM) 50 mg tablet Take by mouth every 8 (eight) hours as needed Active coenzyme Q10 100 mg capsule Take 100 mg by mouth daily Active vitamin E acetate (VITAMIN E ORAL) Take by mouth Active cyanocobalamin, vitamin B-12, (VITAMIN B-12 ORAL) Take by mouth Active arginine, L-arginine, 500 mg capsule Take 500 mg by mouth daily Active POTASSIUM ORAL Take by mouth daily Active vitamin b complex tablet Take 1 tablet by mouth daily Active UNABLE TO FIND Vitamin B 6 Act caden diazePAM (VALIUM) 5 mg tablet Take one tablet by mouth 20 minutes prior to procedure, then repeat with one tablet at procedure if needed. 2 tablet 1 Active Additional Information Patient not taking.Reported on 04/15/2021 hydrALAZINE (APRESOLINE) 50 mg tablet Take 50 mg by mouth 2 (two) times a day 1 Active metoprolol XL (TOPROL-XL) 25 mg extended release tablet Take 25 mg by mouth daily 1 Active amLODIPine (NORVASC) 10 mg tablet Take 10 mg by mouth daily 1 Active Active Problems Problem Noted Date Diagnosed Date Personal history of transient ischemic attack Assessment & Plan (04/15/2021 2:58 PM CDT): Patient has been found to have intermittent paroxysmal atrial fibrillation by Holter monitor. This was earlier communicated to PCP but patient to date does has not been placed on anticoagulation. I personally today spoke with Dr. Burr's covering mid level today and explained that patient is in intermittent atrial fibrillation and is at heightened risk of additional cerebral ischemic events despite use of antiplatelet therapy and should be transitioned from antiplatelet therapy to anticoagulation therapy. She will pursue initiation of anticoagulation therapy and let PCP know of communicated findings. He has yet to have carotid ultrasound completed. He prefers to have it done at [facility]. I will schedule a carotid ultrasound and then have him call this office for results. Unless there is evidence of high-grade carotid stenosis, conversion of antiplatelet to anticoagulant therapy should be adequate for ongoing cerebrovascular prophylaxis. If high-grade carotid stenosis is noted, then he may need endarterectomy consideration as well. I have also again encouraged patient to stop smoking immediately. He has also not been reliably taking atorvastatin I have asked him to resume anti lipid therapy as well. He will follow-up in neurology clinic on an as-needed basis but will contact this office following completion of his carotid ultrasound at [facility] to review test results and any additional recommendations.. Assessment & Plan (02/03/2021 5:17 PM CDT): Patient has a history of cerebral infarction and subsequent TIAs despite use of antiplatelet therapy, and treatment of cholesterol and hypertension. He does have a known cerebrovascular risk factor of tobacco usage and despite recurring counseling refuses to is stop smoking at this point even with additional recommendation today. I will check a carotid ultrasound, echocardiogram, 24 hour Holter, contemporary fasting lipid profile, MRI and MRA brain to see what additional factors may be in place. He may ultimately need long-term anticoagulation. Patient has been counseled that if he has additional new neurological deficits, he should immediately report to the closest emergency room for emergent evaluation and management. I will see him back upon completion of testing. 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 05/08/2018 CVA, old, hemiparesis 05/08/2018 Spinal stenosis of lumbosacral region 05/08/2018 Lumbar radiculopathy Surgical History Surgery Date Site/Laterality Comments APPENDECTOMY LAPAROSCOPIC COLON RESECTION SPINAL FUSION L5 CATARACT EXTRACTION ORAL SURGERY LEG SURGERY Medical History Medical History Date Comments Hypertension Stroke (HCC) Colon cancer (HCC) Neuropathy Family History Medical History Relation Name Comments Diabetes Brother Kidney failure Brother Heart attack Father Heart disease Father Heart attack Mother Heart disease Mother Relation Name Status Comments Brother Father Mother Social History Tobacco Use Types Packs/Day Years Used Date Smoking Tobacco: Every Day Cigarettes Smokeless Tobacco: Never Alcohol Use Standard Drinks/Week Comments Yes 0 (1 standard drink = 0.6 oz pur e alcohol) Personal Safety Answer Date Recorded Getting School Help Needed Not on file 09/10 Sex and Gender Information Value Date Recorded Sex Assigned at Not on file 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 Gender Identity Not on file Sexual Orientation Not on file Obstetrics History Last Filed Vital Signs Vital Sign Reading Time Taken Comments Blood Pressure 118/64 04/15/2021 2:09 PM CDT Pulse 65 04/15/2021 2:09 PM CDT Temperature 36.6 C (97.8 F) 04/15/2021 2:09 PM CDT Respiratory Rate 16 05/08/2018 7:42 AM CDT Oxygen Saturation 100% 05/08/2018 7:42 AM CDT Inhaled Oxygen Concentration - - Weight 83.5 kg (184 lb) 04/15/2021 2:09 PM CDT Height 177.8 cm (5' 10) 04/15/2021 2:09 PM CDT Body Mass Index 26.4 04/15/2021 2:09 PM CDT Plan of Treatment Not on file Medical Devices Implanted Type Area Metal Bench Patternmaker Device Identifier Shelf Expiration Date Model / Serial / Lot Screws,Rods,Ori jeryr Right: Ankle Insurance [employer] [facility] [employer] CON [employer] MEDICARE Advance Directives For more information, please contact: [phone] * Full Code (Latest Code Status on File) Date Activated Date Inactivated Comments 05/06/2018 7:47 PM 05/08/2018 12:46 PM Care Teams Oyster Shipper Relationship Specialty Start Date End Date Miriam Burr MD PCP - General Family Practice 01/27/21
[2025-03-19 06:25] VITALS: BP 157/63; PULSE 49; RESP 18; TEMP 36.1; O2SAT 99
[2025-03-19] MEDS: LACTATED RINGERS 1,000 ML 150 ML IV CONT (06:33)
--- NOTE | 2025-03-19 07:31 | WPDANESEPPF ---
Anes - Initial Pre Proc Eval Procedure: Operation Date: 03/19/25 07:30 Proposed Procedures p Screening Colonoscopy - Khurram Streeter MD Date/Time: 03/19/25 07:31 Surgeon: Khurram Streeter MD Pre Op Diagnosis: screening Patient Data Age: 79 Gender: M Height: 1.78 m Weight: 83 kg Last Vital Signs Temp 97 F L 03/19/25 06:25 Pulse 49 L 03/19/25 06:25 Resp 18 03/19/25 06:25 BP 157/63 H 03/19/25 06:25 Pulse Ox 99 03/19/25 06:25 O2 Del Method Room Air 03/19/25 06:25 Allergies Allergy/AdvReac Type Severity Reaction Status Date / Time No Known Allergies Allergy Verified 03/19/25 06:23 Home Medications ?Medication ?Instructions ?Recorded ?Confirmed ?Type cyanocobalamin (vitamin B-12) 2,500 mcg PO DAILY 05/30/19 03/19/25 History 2,500 mcg sublingual tablet magnesium 250 mg tablet 250 mg PO DAILY 05/30/19 03/19/25 History multivitamin 1 tablet PO DAILY 05/30/19 03/19/25 History potassium 99 mg tablet 99 mg PO DAILY 05/30/19 03/19/25 History arginine (L-arginine) 500 mg tablet 1,000 mg PO DAILY 05/07/20 03/19/25 History omega-3 fatty acids 2,000 mg PO DAILY 05/07/20 03/19/25 History B-complex with vitamin C (Super B 1 tablet PO DAILY 03/16/21 03/19/25 History Complex-Vitamin C tablet) pyridoxine (vitamin B6) 100 mg 100 mg PO DAILY 03/16/21 03/19/25 History tablet (Vitamin B-6) ipratropium bromide 21 mcg (0.03 2 spray intranasal TID #30 mL 09/29/22 03/19/25 Rx %) nasal spray acetaminophen 650 mg 650 mg PO BID 07/23/24 03/19/25 History tablet,extended release (Tylenol 8 Hour) fluticasone fur. 100 mcg-umeclid 1 inh inhalation Q24H 07/23/24 03/19/25 History 62.5 mcg-vilant 25 mcg inhalat.powder (Trelegy Ellipta) metoprolol succinate 25 mg 25 mg PO DAILY #90 tabs 10/22/24 03/19/25 Rx tablet,extended release 24 hr hydralazine 50 mg tablet 50 mg PO BID #180 tabs 12/05/24 03/19/25 Rx clopidogrel 75 mg tablet 75 mg PO DAILY #90 tabs 01/12/25 03/19/25 Rx losartan 50 mg tablet 50 mg PO DAILY 01/21/25 03/19/25 History pravastatin 10 mg tablet 10 mg PO QHS 01/21/25 03/19/25 History albuterol sulfate 90 mcg/actuation 2 puff inhalation Q4H PRN 01/26/25 03/11/25 Rx aerosol inhaler shortness of breath or wheezing #8.5 grams tramadol 50 mg tablet 50 mg PO TID pain #90 tabs 02/20/25 03/19/25 Rx Patient hx anesthesia problems: none Family hx anesthesia problems: none Results Review: All pre-operative results and documents have been reviewed as part of the pre-operative evaluation. [facility] Past Medical History Medical History Seasonal allergic rhinitis History of colon polyps Vasomotor rhinitis Insomnia Paroxysmal atrial fibrillation Low back pain Pulmonary nodules COPD (chronic obstructive pulmonary disease) Cervical spinal stenosis BPH loc w/o ur obs/LUTS Peripheral neuropathy History of CVA (cerebrovascular accident) History of bladder cancer AAA (abdominal aortic aneurysm) Dyslipidemia Essential (primary) hypertension History of prostate disorder Fracture of right patella 1969 Fracture of left wrist 1960 Open fracture of right lower leg 1988 Hx of heat stroke 2014 Surgical History Surgical History S/P TURP History of partial colectomy History of lumbosacral spine surgery History of colectomy 2012 History of appendectomy 1958 History of back surgery 08/23/18 Family History Family History Sibling Lung disease Father Heart disease Mother Heart disease Mother Diabetes mellitus, Onset Age: 87 Hypertension Family history of cardiovascular disease, Onset Age: 87 Family history of coronary artery disease Acute myocardial infarction, Onset Age: 87 Father Family history of cardiovascular disease Family history of coronary artery disease Acute myocardial infarction, Onset Age: 67 Sibling Diabetes mellitus, Onset Age: 63 Family history of renal failure, Onset Age: 63 Family history of elevated blood lipids Family history of cardiovascular disease Family history of coronary artery disease Father Family history of cardiovascular disease Mother Family history of cardiovascular disease Sibling Family history of lung disease Other Asthma Carcinoma of colon Cerebrovascular accident Social History Social History Smoking packs per day: 1 Smoking cigarettes per day: 20.0 Years smoked: 65 Smoking pack-years: 65.00 Smoking status: Current every day smoker Tobacco type: cigarettes Second hand tobacco smoke exposure: Yes Substance use: never Substance use type: does not use Do You Feel Safe in your Home?: Yes Lack of Transportation: No Lack of Food: Never True Current Housing: I Have Housing Concerned About Future Housing: No Difficulty Paying Gas/Electric Bills: No Difficulty Paying for Meds: No Currently Unemployed: No Education: High School Diploma/GED Difficulty w/ Childcare or Family Care: No Living arrangements: with family Additional living arrangements comments: with sp Occupation/Education: retired Gender identity (if verbalized by the patient): Male Sexual Orientation (if Verbalized by the Patient): Straight or Heterosexual Agree to blood products: Yes Anes - Eval Final PreProcedure Day of Procedure 03/19/25 07:31 Patient weight: normal Heart: regular rate and rhythm Lungs: clear to auscultation Airway: Mallampati scale class II Neurological: alert and oriented Last oral intake: >/= 8 hours ASA classification: III Emergent: no Anesthetic plan: proceed Anesthesia type and monitoring: general GIVS and standard monitoring Results Review: All pre-operative results and documents have been reviewed as part of the pre-operative evaluation. Informed Consent: The patient's anesthetic plan and its attendant risks and benefits were discussed with the patient/family/POA. Questions were solicited and answers provided to the satisfaction of the patient/family/POA.
--- NOTE | 2025-03-19 07:35 | PM.IMHP ---
H&P: HPI History of Present Illness Date/Time: 03/19/25 07:35 Chief Complaint: History of colon polyps Narrative: the patient had a partial colectomy several years ago secondary to a benign complicated tumor. In addition he also has a history of colon polyps. He is here for surveillance colonoscop Review of Systems Review of Systems: All systems reviewed & are unremarkable except as noted in HPI and below [facility] Past Medical History Medical History (Updated 03/19/25 @ 07:36 by Khurram Streeter MD) History of colon polyps Seasonal allergic rhinitis Vasomotor rhinitis Insomnia Paroxysmal atrial fibrillation Low back pain Pulmonary nodules COPD (chronic obstructive pulmonary disease) Cervical spinal stenosis BPH loc w/o ur obs/LUTS Peripheral neuropathy History of CVA (cerebrovascular accident) History of bladder cancer AAA (abdominal aortic aneurysm) Dyslipidemia Essential (primary) hypertension History of prostate disorder Fracture of right patella 1968 Fracture of left wrist 1959 Open fracture of right lower leg 1988 Hx of heat stroke 2014 Surgical History Surgical History S/P TURP History of partial colectomy History of lumbosacral spine surgery History of colectomy 2012 History of appendectomy 1958 History of back surgery 08/23/18 Family History Family History Sibling Lung disease Father Heart disease Mother Heart disease Mother Diabetes mellitus, Onset Age: 87 Hypertension Family history of cardiovascular disease, Onset Age: 87 Family history of coronary artery disease Acute myocardial infarction, Onset Age: 87 Father Family history of cardiovascular disease Family history of coronary artery disease Acute myocardial infarction, Onset Age: 67 Sibling Diabetes mellitus, Onset Age: 63 Family history of renal failure, Onset Age: 63 Family history of elevated blood lipids Family history of cardiovascular disease Family history of coronary artery disease Father Family history of cardiovascular disease Mother Family history of cardiovascular disease Sibling Family history of lung disease Other Asthma Carcinoma of colon Cerebrovascular accident Social History Social History Smoking packs per day: 1 Smoking cigarettes per day: 20.0 Years smoked: 65 Smoking pack-years: 65.00 Smoking status: Current every day smoker Tobacco type: cigarettes Second hand tobacco smoke exposure: Yes Substance use: never Substance use type: does not use Do You Feel Safe in your Home?: Yes Lack of Transportation: No Lack of Food: Never True Current Housing: I Have Housing Concerned About Future Housing: No Difficulty Paying Gas/Electric Bills: No Difficulty Paying for Meds: No Currently Unemployed: No Education: High School Diploma/GED Difficulty w/ Childcare or Family Care: No Living arrangements: with family Additional living arrangements comments: with sp Occupation/Education: retired Gender identity (if verbalized by the patient): Male Sexual Orientation (if Verbalized by the Patient): Straight or Heterosexual Agree to blood products: Yes Meds Home Medications and Allergies Home Medications ?Medication ?Instructions ?Recorded ?Confirmed ?Type cyanocobalamin (vitamin B-12) 2,500 mcg PO DAILY 05/30/19 03/19/25 History 2,500 mcg sublingual tablet magnesium 250 mg tablet 250 mg PO DAILY 05/30/19 03/19/25 History multivitamin 1 tablet PO DAILY 05/30/19 03/19/25 History potassium 99 mg tablet 99 mg PO DAILY 05/30/19 03/19/25 History arginine (L-arginine) 500 mg tablet 1,000 mg PO DAILY 05/07/20 03/19/25 History omega-3 fatty acids 2,000 mg PO DAILY 05/07/20 03/19/25 History B-complex with vitamin C (Super B 1 tablet PO DAILY 03/16/21 03/19/25 History Complex-Vitamin C tablet) pyridoxine (vitamin B6) 100 mg 100 mg PO DAILY 03/16/21 03/19/25 History tablet (Vitamin B-6) ipratropium bromide 21 mcg (0.03 2 spray intranasal TID #30 mL 09/29/22 03/19/25 Rx %) nasal spray acetaminophen 650 mg 650 mg PO BID 07/23/24 03/19/25 History tablet,extended release (Tylenol 8 Hour) fluticasone fur. 100 mcg-umeclid 1 inh inhalation Q24H 07/23/24 03/19/25 History 62.5 mcg-vilant 25 mcg inhalat.powder (Trelegy Ellipta) metoprolol succinate 25 mg 25 mg PO DAILY #90 tabs 10/22/24 03/19/25 Rx tablet,extended release 24 hr hydralazine 50 mg tablet 50 mg PO BID #180 tabs 12/05/24 03/19/25 Rx clopidogrel 75 mg tablet 75 mg PO DAILY #90 tabs 01/12/25 03/19/25 Rx losartan 50 mg tablet 50 mg PO DAILY 01/21/25 03/19/25 History pravastatin 10 mg tablet 10 mg PO QHS 01/21/25 03/19/25 History albuterol sulfate 90 mcg/actuation 2 puff inhalation Q4H PRN 01/26/25 03/11/25 Rx aerosol inhaler shortness of breath or wheezing #8.5 grams tramadol 50 mg tablet 50 mg PO TID pain #90 tabs 02/20/25 03/19/25 Rx Allergies Allergy/AdvReac Type Severity Reaction Status Date / Time No Known Allergies Allergy Verified 03/19/25 06:23 Vital Signs Vital Signs - 24 hr 03/19/25 06:25 Temperature 97 F L Pulse Rate 49 L Respiratory Rate 18 Blood Pressure 157/63 H Pulse Oximetry 99 Oxygen Delivery Room Air Exam Const: General: cooperative and healthy appearing Resp: Effort & Inspection: normal respiratory effort and able to speak in complete sentences Auscultation: clear to auscultation bilaterally Cardio: Rate: regular rate Rhythm: regular rhythm GI: Inspection: normal to inspection GI Palp: No No hepatosplenomegaly present Auscultation: normal bowel sounds Rectal Exam: deferred Skin: General skin exam: normal color Psych: Appearance: grossly normal Mental Status: mental status grossly normal Assessment and Plan Assessment and plan (1) History of partial colectomy: Code(s): Z90.49 - Acquired absence of other specified parts of digestive tract Status: Acute Assessment and Plan: The patient is deemed a good candidate for the procedure. Consent signed. Will proceed. (2) History of colon polyps: Code(s): Z86.010 - Personal history of colon polyps Status: Acute
--- NOTE | 2025-03-19 07:53 | S_PTH ---
PATIENT: Jamie Argueta LOC: [facility] #:[id number] AGE/SX: 79/M ROOM: RE03/19/[address]: Khurram Streeter MD : 1945 BED: DIS: 03/19/2025 SPEC #: [id number] RECD: 03/19/25 09:03 STATUS: BJ REShadia #: [id number] NIKA: 03/19/25 07:[address]: Khurram Streeter DEPT: [facility] Surgical RECD BY: Mari Calvo ENTERED: 03/19/25 09:04 SP TYPE: Surgical OTHR DR: Miriam Burr MD Tissues: A - Colon Polypectomy B - Colon Polypectomy Procedures: Hematoxylin and Eosin Stain Gross and Microscopic Level 4
[2025-03-19 07:55] VITALS: BP 128/59; PULSE 46; RESP 12; O2SAT 100
[2025-03-19 08:05] VITALS: BP 140/66; PULSE 48; RESP 23; O2SAT 100
[2025-03-19 08:15] VITALS: BP 155/66; PULSE 47; RESP 16; O2SAT 100
== END 2025-03-19 08:33 | disposition home or self-care (01) ==
PROVIDERS: PCP Family Medicine; Referring Provider Family Medicine; Visit Provider Internal Medicine Gastroenterology
PROC: 0DJD8ZZ Inspection of Lower Intestinal Tract, Via Natural or Artificial Opening Endoscopic (ICD-10-PCS; CPT 45378; principal; 2025-03-19 07:30)
DX: Z12.11 Encounter for screening for malignant neoplasm of colon (principal); D12.3 Benign neoplasm of transverse colon; D12.4 Benign neoplasm of descending colon; K57.30 Diverticulosis of large intestine without perforation or abscess without bleeding; Z98.0 Intestinal bypass and anastomosis status; Z90.49 Acquired absence of other specified parts of digestive tract; F17.210 Nicotine dependence, cigarettes, uncomplicated
CPT/HCPCS: 45385; 88305; J2003; J2704; J7120